=== PATIENT | female | born 1965 | race African-American/Black ===

== ENCOUNTER 2022-03-07 14:38 | Outpatient (CLI) | payer OTHER | END 2022-03-07 14:39 | disposition home or self-care (01) | LOC: BICRAD 14:38 | PROVIDERS: ATTEND Internal Medicine | DX: Z02.71 Encounter for disability determination (principal); M17.0 Bilateral primary osteoarthritis of knee; M47.816 Spondylosis without myelopathy or radiculopathy, lumbar region; M43.16 Spondylolisthesis, lumbar region | CPT/HCPCS: 72100 ==